=== PATIENT | male | born 1945 | race Caucasian/White ===

== ENCOUNTER 2024-04-08 18:02 | Emergency (ER) | payer SELFPAY ==
[~2024-04-08] VITALS: Ht 182.9 cm; Wt 84.0 kg
[2024-04-08 18:24] VITALS: BP 136/76; PULSE 88; RESP 16; O2SAT 98
[2024-04-08 21:45] VITALS: TEMP 98.4
[2024-04-08] MEDS: ACETAMINOPHEN 500MG TABLET PO ONE (21:45)
== END 2024-04-08 22:15 | disposition home or self-care (01) ==
LOC: ER 18:02
DX: N47.2 Paraphimosis (principal); N40.0 Benign prostatic hyperplasia without lower urinary tract symptoms
CPT/HCPCS: 99283